=== PATIENT | female | born 1995 | race Caucasian/White ===

== ENCOUNTER → 2022-01-15 | Outpatient (CLI) | payer OTHER | LOC: COL.RAD 07:11 | DX: E03.9 Hypothyroidism, unspecified (principal) ==

== ENCOUNTER → 2022-01-22 | Outpatient (CLI) | payer OTHER | LOC: ZCOL.LAB 16:34 | DX: R07.9 Chest pain, unspecified (principal); R06.02 Shortness of breath ==

== ENCOUNTER 2022-04-02 18:01 | Emergency (ER) | payer OTHER ==
[~2022-04-02] VITALS: Ht 157.5 cm; Wt 56.8 kg
[2022-04-02 18:20] VITALS: BP 129/85; TEMP 98
[2022-04-02] MEDS ORDERED: PERIDEX (CHLOR480 ML MM ×3 (19:07→19:16)
[2022-04-02 19:16] VITALS: PULSE 75
[2022-04-02] MEDS ORDERED: PERCOCET 325 MG1 TA2 PO (19:17)
== END 2022-04-02 19:18 | disposition home or self-care (01) ==
LOC: COL.ER 18:01
DX: K08.89 Other specified disorders of teeth and supporting structures (principal); K08.409 Partial loss of teeth, unspecified cause, unspecified class
CPT/HCPCS: J2270